=== PATIENT | female | born 1990 | race Caucasian/White ===

== ENCOUNTER 2023-04-26 17:16 | Emergency (ER) | payer BC, SELFPAY ==
[2023-04-26 17:22] VITALS: BP 133/82; BMI 23.3
[2023-04-26 17:36] LABS: % Basophils 0.4 % (0-2); % Eosinophils 0.4 % (0-6); % Immature Granulocytes 0.4 % (0-0.5); % Lymphocytes 23.7 % (20.5-51.1); % Monocytes 7.9 % (1.7-9.3); % Neutrophils 67.2 % (42.2-75.2); Absolute Eosinophils 0.1 10^3/uL (0-0.7); Absolute Lymphocytes 2.7 10^3/uL (1.2-3.4); Absolute Monocytes 0.9 10^3/uL (0.1-0.6); Absolute Neutrophils 7.6 10^3/uL (1.4-6.5); Hematocrit 35.1 % (37.0-47.0); Hemoglobin 12.6 g/dL (12.0-16.0); Mean Corp Hgb Conc. 35.9 g/dL (33.0-37.0); Mean Corpuscular Hgb 31.8 pg (27.0-31.0); Mean Corpuscular Volume 88.6 fL (81.0-99.0); Mean Platelet Volume 9.7 fL (7.4-10.4); Nucleated Red Blood Cells % 0 %; Platelet Count 357 10^3/uL (130-400); Red Blood Cell Count 3.96 10^6/uL (4.20-5.40); Red Cell Dist. Width 12.1 % (11.5-14.5); White Blood Cell Count 11.2 10^3/uL (4.8-10.8)
[2023-04-26 17:47] LABS: HCG, Serum Qualitative Screen Positive
--- NOTE | 2023-04-26 20:28 | ED.GENMED ---
History of Present Illness
General
Chief Complaint: Vaginal Bleeding
Source: patient
Exam Limitations: none
Time Seen by Provider: 04/26/23 20:00
Travel History
Have you had any contact with someone who has COVID-19?: No
Do you have any symptoms of coronavirus? Fever > 100 degrees, chills, cough, shortness of breath, sore throat, loss of taste or smell, muscle aches, or headache?: No
History of Present Illness
History of Present Illness:
See MDM
Past History
Past History
ED Past Medical History: IDDM
ED Past Surgical History: Tonsilectomy and Other ([place] teeth)
Social History
Tobacco: Non-smoker
Alcohol: None
Drug: None
Personal:
Living: with family
Employment: Employed
Phy Exam
Physical Exam
Physical Exam:
See MDM
Course
Orders/Labs/Results
Orders:
Orders
04/26/23 17:26
Test Result ONCE
04/26/23 17:29
Type+Screen Urgent
Beta HCG Quantitative Urgent
Is this a screen?: No
Complete Blood Count/With Diff Urgent
HCG, Serum Qualitative Screen Urgent
Abnormal Lab Results
04/26/23
17:29
WBC 11.2 H 10^3/uL
(4.8-10.8)
RBC 3.96 L 10^6/uL
(4.20-5.40)
Hct 35.1 L %
(37.0-47.0)
MCH 31.8 H pg
(27.0-31.0)
Absolute Neuts (auto) 7.6 H 10^3/uL
(1.4-6.5)
Absolute Monos (auto) 0.9 H 10^3/uL
(0.1-0.6)
04/26/23 17:29
Vital Signs
Initial and Last Documented VS:
Initial Vital Signs
Temp Pulse Resp BP Pulse Ox
98.2 F 101 16 133/82 99
04/26/23 17:22 04/26/23 17:22 04/26/23 17:22 04/26/23 17:22 04/26/23 17:22
Last Documented Vital Signs
Temp Pulse Resp BP Pulse Ox
98.2 F 101 16 133/82 99
04/26/23 17:22 04/26/23 17:22 04/26/23 17:22 04/26/23 17:22 04/26/23 17:22
MDM/Problems Addressed
Differential Diagnosis Includes:
HPI and MDM Narrative:
32-year-old female G2, P0 at 11 weeks gestation is presenting with resolved vaginal bleeding. She states she went to the bathroom and noted some blood. She denies abdominal pain or cramping. Patient acknowledges that she is scared because she has
had a miscarriage before
On evaluation, she is well-appearing nontoxic. She states her blood type is a positive. I performed a bedside ultrasound which confirms IUP. We also witnessed a heartbeat ranging in the 140s and saw the baby move. Patient acknowledges that she
immediately felt better. I discussed with patient that I cannot tell her that this is okay. I can say that baby looks okay at this moment. Patient knowledges that. She has follow-up ultrasound with OB this week
Physical exam
General: Well appearing and non-toxic
HEENT: protecting airway
Neck: appears supple
CV: No evidence of cyanosis
Resp: No accessory muscle use
Abd: Non-distended. Soft
Extremities: No deformities
Neuro: alert
Psych: Normal affect
Skin: Intact
Problems Addressed including Acute and Chronic Conditions affecting care:
1. First trimester bleeding
Acuity: acute
Prognosis: stable
Details: Symptoms have resolved. Bedside ultrasound confirms live IUP
Differential Diagnosis (but not limited to): Threatened miscarriage, demise, subchorionic hemorrhage
Testing considered: Formal ultrasound
Drug therapy (if applicable): OTC meds, please see d/c instruction regarding Rx drugs
Amount and/or Complexity of Data Reviewed
Clinical info obtained from: Patient
External data reviewed: N/A
Labs I independently reviewed (but not limited to): Hemoglobin stable
Radiology: N/A
Pulse Ox: not hypoxic
EKG independently reviewed: N/A
Tool Dispatcher: N/A
Critical Care: N/A
Risk of Complication:
Social Determinants of health: Good social support
Discussed with other providers: N/A
Escalation of Care includes Admit/Obs: After being observed in the Emergency Department, pt stable for discharge.
Occasional wrong word or 'sound a like' substitutions may have occurred due to the inherent limitations of voice recognition software. Read the chart carefully and recognize, using context, where substitutions have occurred.
*Critical Care Note
Total Time (30-74mins, 75-104mins- exclusive of procedures): Not Applicable
ED Attending Note
-
Portions of this chart may have been created with voice recognition software.� Occasional wrong word or��sound alike� substitutions may have occurred due to the inherent limitations of voice recognition software.
Discharge Plan
Departure
Patient Disposition: Home (Routine Discharge)
Date of Disposition: 04/26/23
Time of Disposition: 20:28
Patient with high blood pressure during this ER visit?: No
Discharge Problem:
First-trimester bleeding
Prescriptions:
No Action
insulin aspart U-100 [Novolog FlexPen U-100 Insulin] 300 UNITS/3 ML insulin pen
2 units SC QID
Patient Comments:
sliding scale; for every 30 carbs give 2 units
insulin detemir U-100 [Levemir FlexTouch U100 Insulin] 300 UNIT/3 ML insulin pen
25 unit SC DAILY@0800,1700
ciprofloxacin HCl 500 MG tablet
500 mg PO BID Qty: 14 0RF
amoxicillin-pot clavulanate 1 TABLET tablet
1 tab PO Q12 Qty: 20 0RF
ibuprofen 600 MG tablet
600 mg PO TIDPRN PRN (Reason: pain) Qty: 30 0RF
cephalexin 500 MG capsule
500 mg PO BID Qty: 19 0RF
promethazine-codeine 5 ML syrup
5 ml PO Q4HPRN PRN (Reason: Cough) Qty: 120 0RF
Rx Instructions:
May use 2 tsp as needed for cough
Referrals:
Blank Martinez MD [Family Provider] -
Activity Restrictions/Additional Instructions:
Please return for any worsening symptoms.
You may return at any time if you have further concerns.
Please keep your OB appointment.
Thank you for choosing [facility].
Interventions
Interventions:
*Risk Screen - Suicide Last Done: 04/26/23 17:22
*Neglect/Abuse Screening Last Done: 04/26/23 17:22
*ED COVID-19 Vaccine History Last Done: 04/26/23 17:22
ED-Female Genitourinary Assessment Last Done: 04/26/23 20:23
== END 2023-04-26 20:49 | disposition home or self-care (01) ==
LOC: EMR 17:16
PROVIDERS: Emergency Medicine; EMERGENCY PHYSICIAN Student in an Organized Health Care Education/Training Program; FAMILY PHYSICIAN Internal Medicine
DX: O26.851 Spotting complicating pregnancy, first trimester (principal); Z3A.11 11 weeks gestation of pregnancy
CPT/HCPCS: 99284; 84702; 84703; 85025; 86850; 86900; 86901

== ENCOUNTER → 2023-07-09 10:52 | Outpatient (REF) | payer BC, SELFPAY | LOC: DES 10:52 | PROVIDERS: ATTENDING PHYSICIAN Physician Assistant | DX: O24.012 Pre-existing type 1 diabetes mellitus, in pregnancy, second trimester (principal) | CPT/HCPCS: 99078 ==

== ENCOUNTER → 2024-02-05 11:09 | Outpatient (REF) | payer BC, SELFPAY ==
--- NOTE | 2024-02-05 12:27 | PN.DE.MGMTRT ---
Insulin Management
- -
02/05/2024 Type 1 diabetes with
Patient self referred for assistance with glucose control during . G2, P0, EDC 09/13/2024. Patient delivered male in September 16, 2023, spent 2 weeks in NICU then , possible UTI.
She is currently using the Tandem tslim pump with novolog, autosoft infusion sets and DexCom G6. She states she is having significant nausea and vomiting with this ; weight has remained stable. She follows with Lavell Patton and
[facility] for routine diabetes care. She provided CGM/pump reports which indicate glucose range from 70 to 212. There are frequent periods where pump is suspended. Overnight glucose controlled but may have 2 to 6 periods
where pump is self suspended. Fasting glucose 81 to 124. She admits she is struggling with bolusing for food as she is never sure if she will be able to keep the food down. After discussion she will try the following strategies:
If glucose trends less than 80 she will take 2 ounces of juice to prevent the pump from suspending
The sleep pattern feature has been turned off to allow for glucose fasting to be 95 or less but above 70.
If she is going to eat she will bolus 10 minutes before consuming anything; if she is unable to keep the food down she will take 1 to 2 ounces of juice to counteract hypoglycemia.
Correction factor has been changed from 36 to 40 at 12am and 3am.
She will send report every 3 days for further needed adjustments.
Diabetes History
- -
Type of Diabetes: 1
Pre-Admission Diabetes Regimen
Insulin Pump Settings
IP Diabetes Regimen
Patient Education
== END ==
LOC: DES 11:09
PROVIDERS: ATTENDING PHYSICIAN Obstetrics & Gynecology
DX: E10.9 Type 1 diabetes mellitus without complications (principal)
CPT/HCPCS: 99078